=== PATIENT | female | born 1965 | race African-American/Black ===

== ENCOUNTER 2017-01-31 16:05 | Emergency (ER) | payer SELFPAY ==
[2017-01-31 16:37] VITALS: BP 159/100; PULSE 78; TEMP 98.6; BMI 27.4
--- NOTE | 2017-01-31 17:06 | PDOC ---
History of Present Illness - General Chief Complaint: Injury Stated Complaint: FOOT INJURY Time Seen by Provider: 01/31/17 16:48 History Source: Patient Exam Limitations: No Limitations - History of Present Illness Initial Comments: 01/31/17 17:01 Patient is a 51-year-old female, no significant medical history currently on no medication states she was walking down a flight of steps and someone was washing the stairs her right foot slipped yet her left foot stayed behind and twisted now with pain to left toes. Pain with ambulation, bruising noted to the second third and fourth toes. Denies pain to ankle, no tib-fib or knee pain. It is a tingling, no neurosensory deficits, denies any other pain or injury, no LOC, no head injury. Past Medical History: Denies. Allergies: No known allergies Medications: None Family History: Non-contributory Social History: Denies smoking, alcohol use, or IVDU Review of Systems GENERAL/CONSTITUTIONAL: No fever or chills. No weakness. No weight change. HEAD, EYES, EARS, NOSE AND THROAT: No change in vision. No ear pain or discharge. No sore throat. CARDIOVASCULAR: No chest pain or shortness of breath. RESPIRATORY: No cough, wheezing, or hemoptysis. GASTROINTESTINAL: No nausea, vomiting, diarrhea or constipation. No rectal bleeding. GENITOURINARY: No dysuria, frequency, or change in urination. MUSCULOSKELETAL: No joint or muscle swelling or pain. No neck or back pain. SKIN : No rash. Pain and bruising to base of toes on left foot NEUROLOGIC: No headache, vertigo, loss of consciousness, or loss of sensation. Physical Exam: GENERAL: The patient is awake, alert, and fully oriented, in no acute distress. EYES: Pupils equal, round and reactive to light, extraocular movements intact, sclera anicteric, conjunctiva clear. ENT: Ears normal, nares patent, oropharynx clear without exudates. Moist mucous membranes. No uvula deviation NECK: Normal range of motion, supple without lymphadenopathy, JVD, or masses. LUNGS: Breath sounds equal, clear to auscultation bilaterally. No wheezes, and no crackles. HEART: Regular rate and rhythm, normal S1 and S2 without murmur, rub or gallop. ABDOMEN: Soft, nontender, normoactive bowel sounds. No guarding, no rebound. No masses. No bruising or abrasions MUSCULOSKELETAL: Normal range of motion, no edema. No clubbing or cyanosis. No cords, erythema, or tenderness. Pain to base of toes on left foot. NEUROLOGICAL: Cranial nerves II through XII grossly intact. Normal speech, limping. PSYCH: Normal mood, normal affect. SKIN: Warm, Dry, normal turgor, no rashes or lesions noted. Bruising and swelling to the base of toes on left foot 01/31/17 17:01 Occurred: reports: this morning Past History - Past Medical History Allergies/Adverse Reactions: Allergies Allergy/AdvReac Type Severity Reaction Status Date / Time No Known Allergies Allergy Verified 01/31/17 16:35 Home Medications: Ambulatory Orders NK [No Known Home Medication] 01/31/17 Asthma: Yes - Psycho/Social/Smoking Cessation Hx Anxiety: No Suicidal Ideation: No Smoking History: Never smoked Have you smoked in the past 12 months: No Information on smoking cessation initiated: No Hx Alcohol Use: No Drug/Substance Use Hx: No Substance Use Type: None *Physical Exam - Vital Signs Last Vital Signs Temp Pulse Resp BP Pulse Ox 98.6 F 78 18 159/100 100 01/31/17 16:35 01/31/17 16:35 01/31/17 16:35 01/31/17 16:35 01/31/17 16:35 Medical Decision Making - Medical Decision Making 01/31/17 17:06 A/P: Patient here for evaluation of injury to left foot, sent to x-ray to rule out acute fracture. *DC/Admit/Observation/Transfer Diagnosis at time of Disposition: Foot injury Qualifiers: Encounter type: initial encounter Laterality: left Qualified Code(s): S99.922A - Unspecified injury of left foot, initial encounter - Discharge Dispostion Disposition: HOME Condition at time of disposition: Good Admit: No - Referrals Referrals: Tai Prajapati MD [Staff Physician] - - Patient Instructions Additional Instructions: Your x-ray demonstrates no acute visible injury. We will give you a surgical shoe for comfort Follow-up with Dr. Prajapati in one week if pain persists. May take [id number] Motrin 600 mg every 8 hours as needed for pain. Ice and elevate when at rest - Post Discharge Activity Work/School Note: Back to Work
== END 2017-01-31 18:43 | disposition home or self-care (01) ==
LOC: JERFT 16:05
DX: S99.922A Unspecified injury of left foot, initial encounter (principal); W10.9XXA Fall (on) (from) unspecified stairs and steps, initial encounter; Y93.89 Activity, other specified; Y92.9 Unspecified place or not applicable
CPT/HCPCS: 73610-TC-LT; 73630-TC-LT; 99281-25